=== PATIENT | male | born 2000 | race Hispanic/Latino ===

== ENCOUNTER 2022-04-08 10:04 | Emergency (ER) | payer OTHER ==
[~2022-04-08] VITALS: Ht 167.6 cm; Wt 63.5 kg
[2022-04-08] MEDS ORDERED: CLINDAMYCIN IVPB 300MG/50ML 50 ML IV SCH (10:33)
[2022-04-08] MEDS: CLINDAMYCIN 150 MG CAP ONE ×2 (10:55→11:08)
[2022-04-08] MEDS ORDERED: CLINDAMYCIN 150 MG CAP PO SCH (11:00)
[2022-04-08 11:12] LABS: CREATININE 0.5 mg/dL (0.5-1.5); POTASSIUM 3.5 mmol/L (3.5-5.1)
[2022-04-08 11:17] LABS: TOTAL PROTEIN, SERUM 7.3 g/dL (6.0-8.3)
[2022-04-08 11:19] LABS: BASOPHILS % (AUTO) 0.2 % (0.0-5.0); EOSINOPHILS % (AUTO) 0.7 % (0.0-8.0); HEMATOCRIT 31.6 % (42-54); LYMPHOCYTES % (AUTO) 9.8 % (21.0-51.0); MEAN CORPUSCULAR HEMOGLOBIN 28.6 pg (27.0-33.0); MEAN CORPUSCULAR HGB CONC 32.9 g/dL (32.0-36.0); MEAN CORPUSCULAR VOLUME 86.8 fL (79-99); MONOCYTES % (AUTO) 8.1 % (3.0-13.0); PLATELET COUNT (AUTO) 169 K/uL (130-400); RED BLOOD CELL COUNT(AUTO) 3.64 MIL/uL (4.50-6.20); RED CELL DISTRIBUTION WIDTH 14.8 % (11.0-15.5); WHITE BLOOD COUNT (AUTO) 12.2 K/uL (4.8-10.8)
[2022-04-08 12:15] VITALS: BP 120/74
[2022-04-08] MEDS ORDERED: LIDOCAINE HCL 1% 20 ML VIAL INJ SCH (13:08)
[2022-04-08] MEDS ORDERED: LIDOCAINE HCL 1% 20 ML VIAL ONE (13:12)
[2022-04-08] MEDS ORDERED: CLIN-141 PO (13:54)
== END 2022-04-08 14:02 ==
LOC: EDH 10:04
DX: L02.413 Cutaneous abscess of right upper limb (principal); F19.11 Other psychoactive substance abuse, in remission
CPT/HCPCS: 10060; 36415; 80053; 85025; 87070; 87076; 87077; 87186